=== PATIENT | female | born 1985 | race Caucasian/White ===

== ENCOUNTER 2024-04-29 14:40 | Emergency (ER) | payer OTHER ==
[~2024-04-29] VITALS: Ht 162.5 cm; Wt 113.4 kg
[~2024-04-29 14:40] MED LIST: ATARAX,VISTARIL50 MG PO; CLONAZEPAM0.5 M2 PO; CYMBALTA60 MG PO; FLUOXETINE HCL40 MG PO; MOTRIN 600 MG E4 TAB PO; NICODERM CQ1 EAC2 TD
[2024-04-29 15:27] VITALS: BP 150/93
[2024-04-29] MEDS ORDERED: AUVELITY ER 451 EACH PO (15:29)
[2024-04-29] MEDS ORDERED: LORAZEPAM1 MG PO (15:29)
[2024-04-29] MEDS ORDERED: FLUVOXAMINE50 MG PO (15:30)
[2024-04-29] MEDS ORDERED: SODIUM CHLORIDE 0.9% 1,000 ML IV ONE (16:40)
[2024-04-29 16:58] LABS: BASO % 0.5 % (0.0-1.0); EOS # 0.1 10*3/uL (0.0-0.4); EOS % 1.8 % (1.0-4.0); HEMATOCRIT 44.2 % (37.0-47.0); MEAN CELL VOLUME 91.1 fl (81.0-99.0); MEAN CORPUSCULAR HGB 32.6 pg (27.0-31.0); MEAN CORPUSCULAR HGB CONC 35.7 g/dl (33.0-37.0); MEAN PLATELET VOLUME 10.3 fl (9.6-12.3); MONO # 0.5 10*3/uL (0.1-1.0); MONO % 10.4 % (3.0-9.0); NEUT # 2.5 10*3/uL (2.3-7.9); PLATELET COUNT AUTOMATED 173 10*3/uL (130-400); RED BLOOD COUNT 4.85 10*6/uL (4.10-5.10); RED CELL DISTRI WIDTH 12.5 % (0-14.5); WHITE BLOOD COUNT 4.4 10*3/uL (4.8-10.8)
[2024-04-29 17:18] LABS: CHLORIDE 107 mmol/L (98-107); POTASSIUM 3.4 mmol/L (3.4-5.1)
[2024-04-29 17:38] LABS: BUN < 5 mg/dl (9-23)
[2024-04-29] MEDS ORDERED: AVPAK AZITHROM250 M1 PO (18:02)
== END 2024-04-29 19:11 | disposition home or self-care (01) ==
LOC: ED 14:40
PROVIDERS: Emergency Medicine
DX: J40 Bronchitis, not specified as acute or chronic (principal); F41.9 Anxiety disorder, unspecified; F17.290 Nicotine dependence, other tobacco product, uncomplicated; F12.90 Cannabis use, unspecified, uncomplicated; F10.90 Alcohol use, unspecified, uncomplicated; Z88.8 Allergy status to other drugs, medicaments and biological substances

== ENCOUNTER 2024-05-01 09:15 | Emergency (ER) | payer OTHER ==
[~2024-05-01] VITALS: Ht 162.5 cm; Wt 107.1 kg
[~2024-05-01 09:15] MED LIST changes: +AUVELITY ER 451 EACH PO; +AVPAK AZITHROM250 M1 PO; +FLUVOXAMINE50 MG PO; +LORAZEPAM1 MG PO
[2024-05-01 09:28] VITALS: BP 133/73
[2024-05-01] MEDS ORDERED: SODIUM CHLORIDE 0.9% 1,000 ML IV ONE (09:55)
[2024-05-01] MEDS ORDERED: Ondansetron Hydrochloride 4 MG/2 ML VIAL IV ONE (09:55)
[2024-05-01] MEDS ORDERED: FAMOTIDINE 50 ML IV ONE (09:55)
[2024-05-01] MEDS ORDERED: Ketorolac Tromethamine 30 MG/ML VIAL IV ONE (09:55)
[2024-05-01 10:10] LABS: BASO % 0.2 % (0.0-1.0); EOS # 0.1 10*3/uL (0.0-0.4); EOS % 1.1 % (1.0-4.0); HEMATOCRIT 44.9 % (37.0-47.0); MEAN CORPUSCULAR HGB 31.6 pg (27.0-31.0); MEAN CORPUSCULAR HGB CONC 34.3 g/dl (33.0-37.0); MEAN PLATELET VOLUME 10.2 fl (9.6-12.3); MONO # 0.5 10*3/uL (0.1-1.0); MONO % 7.9 % (3.0-9.0); NEUT % 64.2 % (47.0-73.0); PLATELET COUNT AUTOMATED 215 10*3/uL (130-400); RED BLOOD COUNT 4.88 10*6/uL (4.10-5.10); RED CELL DISTRI WIDTH 12.3 % (0-14.5); WHITE BLOOD COUNT 6.2 10*3/uL (4.8-10.8)
[2024-05-01 10:32] LABS: ALKALINE PHOSPHATASE 152 U/L (46-116); CHLORIDE 107 mmol/L (98-107); LIPASE 26 U/L (12-53); POTASSIUM 3.2 mmol/L (3.4-5.1); SGPT/ALT 48 U/L (5-49)
[2024-05-01 10:39] LABS: BUN < 5 mg/dl (9-23)
[2024-05-01 12:01] LABS: B-hCG (QUALITATIVE) NEGATIVE (NEGATIVE)
[2024-05-01 12:09] LABS: BILIRUBIN Negative (Negative); BLOOD 2+ (Negative); CLARITY Clear (Clear); COLOR Dark Yellow (Yellow); GLUCOSE Negative (Negative); KETONE Trace (Negative); LEUKO ESTERASE 1+ (Negative); NITRITE Negative (Negative); SPECIFIC GRAVITY 1.015 (1.001-1.030)
[2024-05-01 12:20] LABS: BACTERIA 1+
[2024-05-01] MEDS ORDERED: COLACE100 MG PO (12:48)
[2024-05-01] MEDS ORDERED: OMNICEF300 MG PO (12:48)
[2024-05-01] MEDS ORDERED: POTASSIUM CHLORIDE 20 MEQ TAB PO ONE (12:50)
== END 2024-05-01 12:54 | disposition home or self-care (01) ==
LOC: ED 09:15
PROVIDERS: Emergency Medicine
DX: K59.00 Constipation, unspecified (principal); E87.6 Hypokalemia; N39.0 Urinary tract infection, site not specified; R11.0 Nausea; F41.9 Anxiety disorder, unspecified; F12.90 Cannabis use, unspecified, uncomplicated; Z72.0 Tobacco use; Z88.8 Allergy status to other drugs, medicaments and biological substances

== ENCOUNTER → 2024-09-28 | Outpatient (CLI) | payer OTHER ==
[~2024-09-28] MED LIST changes: +COLACE100 MG PO; +IOHEXOL 300 MG/ML 100 ML VIAL IV ONE; +IOHEXOL 300 MG/ML 100 ML VIAL ONE; +OMNICEF300 MG PO
== END | disposition home or self-care (01) ==
LOC: CT 14:18
PROVIDERS: ATTEND Physician Assistant
DX: N83.202 Unspecified ovarian cyst, left side (principal); K76.0 Fatty (change of) liver, not elsewhere classified; R10.9 Unspecified abdominal pain; R31.9 Hematuria, unspecified; K59.00 Constipation, unspecified